=== PATIENT | male | born 1990 | race Caucasian/White ===

== ENCOUNTER → 2017-05-30 | Outpatient (CLI) | payer BC ==
[2017-05-30 12:14] LABS: HEMATOCRIT 46.1 % (42-52); MEAN CELL VOLUME 88.8 fL (80-100); MEAN CORPUSCULAR HEMOGLOBIN 29.7 pg (25-34); MEAN CORPUSCULAR HGB CONC 33.4 g/dl (32-36); MEAN PLATELET VOLUME 11.5 fL (7.4-10.4); PLATELET COUNT 290 K/uL (130-400); RED BLOOD COUNT 5.19 M/uL (4.7-6.1); WHITE BLOOD COUNT 5.09 K/uL (4.8-10.8)
[2017-05-30 12:34] LABS: ALT/SGPT 29 U/L (12-78); BLOOD UREA NITROGEN 16 mg/dl (7-18); BUN/CREATININE RATIO 14.2 (10-20); CARBON DIOXIDE 32 mmol/L (21-32); CHLORIDE 105 mmol/L (98-107); GLUCOSE 88 mg/dl (70-99); SODIUM 140 mmol/L (136-145)
[2017-05-30 12:44] LABS: ALB/GLOB RATIO 1.2 (0.9-2); ALKALINE PHOSPHATASE 50 U/L (45-117); AST/SGOT 19 U/L (15-37); THYROID STIMULATING HORMONE 0.362 uIu/ml (0.300-4.500)
[2017-05-31 16:21] LABS: THYROGLOBULIN <0.1 NG/ML (2.8-40.9)
== END | disposition home or self-care (01) ==
LOC: C.LAB1850 09:37
PROVIDERS: ATTEND Internal Medicine Endocrinology, Diabetes & Metabolism
DX: C73 Malignant neoplasm of thyroid gland (principal)

== ENCOUNTER → 2017-05-31 | Outpatient (CLI) | payer BC ==
--- NOTE | 2017-05-31 08:40 | DIAGNOSTIC IMAGING REPORT ---
SOFT TISSUE HEAD/NECK-THYROID CLINICAL HISTORY: 27 years-old Male with PAPILLARY THYROID CARCINOMA. History of thyroidectomy one year prior with right neck nodes removed. Follow-up exam. COMPARISON: None available. TECHNIQUE: Multiple real time sonographic images of the thyroid were obtained accessing pedroza scale appearance and color doppler flow. FINDINGS: The thyroid is surgically absent compatible with patient history of prior thyroidectomy. No abnormal mass or collection is seen within the region of the thyroid bed. There is a small likely physiologic appearing lymph node seen, 1.6 x 1.1 x 0.5 cm. No pathologically enlarged lymph nodes are identified. IMPRESSION: 1. Prior thyroidectomy without focal abnormality or collection identified within the region of the thyroid bed. 2. No pathologically enlarged lymph nodes. Small lymph node of the left neck is nonspecific and may be physiologic. Attention on follow-up recommended. The above report was generated using voice recognition software. It may contain grammatical, syntax or spelling errors. Electronically signed by: Chung Red M.D. 05/31/2017 8:38 AM Dictated Date/Time: 05/31/2017 8:35 AM
== END | disposition home or self-care (01) ==
LOC: C.ULTRBC 07:34
PROVIDERS: ATTEND Internal Medicine Endocrinology, Diabetes & Metabolism
DX: C73 Malignant neoplasm of thyroid gland (principal); E89.0 Postprocedural hypothyroidism

== ENCOUNTER → 2017-07-09 | Outpatient (CLI) | payer BC ==
[2017-07-10 17:53] LABS: THYROGLOBULIN <0.1 NG/ML (2.8-40.9)
== END | disposition home or self-care (01) ==
LOC: C.LAB1850 09:00
PROVIDERS: ATTEND Internal Medicine Endocrinology, Diabetes & Metabolism
DX: C73 Malignant neoplasm of thyroid gland (principal)

== ENCOUNTER → 2017-07-13 | Outpatient (CLI) | payer BC ==
[2017-07-14 13:20] LABS: THYROGLOBULIN <0.1 NG/ML (2.8-40.9)
== END | disposition home or self-care (01) ==
LOC: C.LAB1850 08:21
PROVIDERS: ATTEND Internal Medicine Endocrinology, Diabetes & Metabolism
DX: C73 Malignant neoplasm of thyroid gland (principal)

== ENCOUNTER → 2018-01-04 | Outpatient (CLI) | payer OTHER ==
--- NOTE | 2018-01-04 15:57 | DIAGNOSTIC IMAGING REPORT ---
THYROID ULTRASONOGRAPHY CLINICAL HISTORY: C73 Papillary thyroid [id number] Postoperative primary hyperthyroidism COMPARISON STUDY: 05/31/2017 FINDINGS: There are postsurgical changes of a total thyroidectomy. No masses are visualized within the thyroid bed. There are bilateral cervical lymph nodes. The largest on the right measures 39 x 15 x 13 mm. The largest in the left measures 11 x 8 x 11 mm. IMPRESSION: 1. Surgically absent thyroid. No abnormalities within the thyroid bed 2. Enlarged right cervical lymph node with a mildly thickened cortex measuring 39 x 15 x 13 mm. This node was not described in the preceding study. This node would be amenable to fine-needle aspiration biopsy as deemed clinically indicated. Electronically signed by: Kirill Avery M.D. 01/04/2018 3:55 PM Dictated Date/Time: 01/04/2018 3:50 PM
== END | disposition home or self-care (01) ==
LOC: C.ULTRBC 15:25
PROVIDERS: ATTEND Internal Medicine Endocrinology, Diabetes & Metabolism
DX: C73 Malignant neoplasm of thyroid gland (principal); E89.0 Postprocedural hypothyroidism